=== PATIENT | female | born 1965 | race Caucasian/White ===

== ENCOUNTER 2016-07-21 13:07 | Emergency (ER) | payer OTHER ==
[2016-07-21 14:09] LABS: HEMOGLOBIN 13.5 gm/dl (12.3-15.3); RED BLOOD COUNT 4.3 M/UL (4.00-5.10); WHITE BLOOD COUNT 13.8 K/UL (4.5-11.0)
[2016-07-21 14:30] LABS: BUN/CREATININE RATIO 13 (0-10)
[2016-08-06] MEDS ORDERED: COLACE 100MG C100 MG PO (08:51)
[2016-08-06] MEDS ORDERED: DULOXETINE HCL30 MG PO (08:51)
[2016-08-06] MEDS ORDERED: DULERA 100 MCG8.8 GM INH (08:51)
[2016-08-06] MEDS ORDERED: BUPROPION HCL150 M1 PO (08:51)
[2016-08-06] MEDS ORDERED: IBUPROFEN800 MG PO (08:52)
[2016-08-06] MEDS ORDERED: NEURONTIN 400400 MG PO (08:52)
[2016-08-06] MEDS ORDERED: UNITHROID175 MCG PO (08:54)
[2016-08-06] MEDS ORDERED: LISINOPRIL20 MG PO (08:55)
[2016-08-06] MEDS ORDERED: SIMVASTATIN40 MG PO (08:55)
[2016-08-06] MEDS ORDERED: OMEPRAZOLE20 M1 PO (08:55)
[2016-08-06] MEDS ORDERED: HYDROCODON-ACE1 EAC2 PO (08:56)
[2016-08-06] MEDS ORDERED: BACTROBAN NASAL1 G1 (12:26)
[2016-08-06] MEDS ORDERED: NORCO 7.5-3251 EACH PO (12:27)
== END 2016-07-21 20:25 ==
LOC: ER1 13:07
PROVIDERS: Emergency Medicine
DX: K86.89 Other specified diseases of pancreas (principal); J44.9 Chronic obstructive pulmonary disease, unspecified; K21.9 Gastro-esophageal reflux disease without esophagitis; I10 Essential (primary) hypertension; Z90.89 Acquired absence of other organs; Z90.710 Acquired absence of both cervix and uterus; F17.210 Nicotine dependence, cigarettes, uncomplicated
CPT/HCPCS: 36415; 71010; 80053; 82550; 82553; 83605; 83874; 83880; 84484; 85025; 85379; 87040; 93005; 96361; 96374; 96375; 96376; 99285; J0696; J2270; J2405; J7050; Q9963

== ENCOUNTER → 2016-08-06 | Day surgery (SDC) | payer OTHER ==
[~2016-08-06] VITALS: Ht 157.5 cm; Wt 59.4 kg
[~2016-08-06] MED LIST: BACTROBAN NASAL1 G1; BUPROPION HCL150 M1 PO; COLACE 100MG C100 MG PO; DULERA 100 MCG8.8 GM INH; DULOXETINE HCL30 MG PO; ENSURE ORIGINA237 ML PO; HYDROCHLOROTHIA25 MG PO; HYDROCODON-ACE1 EAC2 PO; IBUPROFEN800 MG PO; LACTULOSE10 GM/15 M PO; LEVAQUIN500 MG PO; LISINOPRIL20 MG PO; LORTAB 7.5-3251 EACH PO; LOVENOX SY60 MG/0.6 SQ; MORPHINE SULFAT30 M2 PO; MORPHINE SULFAT30 M6 PO; NEURONTIN 400400 MG PO; NORCO 7.5-3251 EACH PO; OMEPRAZOLE20 M1 PO; OMEPRAZOLE20 MG PO; PHENERGAN 25 MG25 M1 PO; SENNA LAX8.6 MG PO; SIMVASTATIN40 MG PO; UNITHROID175 MCG PO
== END | disposition home or self-care (01) ==
LOC: OR 07:50
PROVIDERS: Surgery
PROC: 05HM33Z Insertion of Infusion Device into Right Internal Jugular Vein, Percutaneous Approach (ICD-10-PCS; 2016-08-06)
PROC: B513ZZA Fluoroscopy of Right Jugular Veins, Guidance (ICD-10-PCS; 2016-08-06)
PROC: 0JH60XZ Insertion of Tunneled Vascular Access Device into Chest Subcutaneous Tissue and Fascia, Open Approach (ICD-10-PCS; principal; 2016-08-06 11:05)
DX: C25.9 Malignant neoplasm of pancreas, unspecified (principal); M19.90 Unspecified osteoarthritis, unspecified site; J45.909 Unspecified asthma, uncomplicated; I10 Essential (primary) hypertension; C22.9 Malignant neoplasm of liver, not specified as primary or secondary; M81.0 Age-related osteoporosis without current pathological fracture; M06.9 Rheumatoid arthritis, unspecified; G89.29 Other chronic pain; J44.9 Chronic obstructive pulmonary disease, unspecified; E03.9 Hypothyroidism, unspecified; F17.210 Nicotine dependence, cigarettes, uncomplicated; Z88.8 Allergy status to other drugs, medicaments and biological substances; Z79.891 Long term (current) use of opiate analgesic; Z79.899 Other long term (current) drug therapy; Z90.710 Acquired absence of both cervix and uterus; Z98.51 Tubal ligation status; Z96.611 Presence of right artificial shoulder joint; Z96.652 Presence of left artificial knee joint; Z87.01 Personal history of pneumonia (recurrent)
CPT/HCPCS: 71010; 77001; C1769; C1788; J0295; J0690; J1644; J2250; J3010; J3370; J7030; J7050; J7070; J7120

== ENCOUNTER → 2016-08-21 | Outpatient (CLI) | payer OTHER | LOC: RAD 10:13 | DX: R06.02 Shortness of breath (principal); R91.8 Other nonspecific abnormal finding of lung field | CPT/HCPCS: 71020 ==

== ENCOUNTER 2016-08-27 14:09 | Observation (INO) | payer OTHER ==
[~2016-08-27] VITALS: Ht 157.5 cm; Wt 56.8 kg
[~2016-08-27 14:09] MED LIST changes: -ENSURE ORIGINA237 ML PO; -HYDROCHLOROTHIA25 MG PO; -LACTULOSE10 GM/15 M PO; -LEVAQUIN500 MG PO; -LORTAB 7.5-3251 EACH PO; -LOVENOX SY60 MG/0.6 SQ; -MORPHINE SULFAT30 M2 PO; -MORPHINE SULFAT30 M6 PO; -OMEPRAZOLE20 MG PO; -PHENERGAN 25 MG25 M1 PO; -SENNA LAX8.6 MG PO
[2016-08-27 15:47] LABS: HEMOGLOBIN 13.9 gm/dl (12.3-15.3); RED BLOOD COUNT 4.43 M/UL (4.00-5.10); WHITE BLOOD COUNT 16.5 K/UL (4.5-11.0)
[2016-08-27 16:34] LABS: BUN/CREATININE RATIO 22 (0-10)
[2016-08-27] MEDS ORDERED: HYDROCHLOROTHIA25 MG PO (21:26)
[2016-08-27] MEDS ORDERED: LORTAB 7.5-3251 EACH PO (21:26)
[2016-08-27] MEDS ORDERED: NEURONTIN 400400 MG PO ×2 (21:27→22:10)
[2016-08-27] MEDS ORDERED: MORPHINE SULFAT30 M6 PO (21:27)
[2016-08-27] MEDS ORDERED: LACTULOSE10 GM/15 M PO (21:28)
[2016-08-27] MEDS ORDERED: OMEPRAZOLE20 MG PO (21:28)
[2016-08-27] MEDS ORDERED: SENNA LAX8.6 MG PO (21:29)
[2016-08-27] MEDS ORDERED: PHENERGAN 25 MG25 M1 PO (21:32)
[2016-08-28 06:16] LABS: RED BLOOD COUNT 4.24 M/UL (4.00-5.10); WHITE BLOOD COUNT 13.8 K/UL (4.5-11.0)
[2016-08-28 06:26] LABS: BUN/CREATININE RATIO 20 (0-10)
[2016-08-29 07:42] LABS: HEMOGLOBIN 13.6 gm/dl (12.3-15.3); RED BLOOD COUNT 4.37 M/UL (4.00-5.10); WHITE BLOOD COUNT 12.9 K/UL (4.5-11.0)
[2016-08-29] MEDS ORDERED: LOVENOX SY60 MG/0.6 SQ (11:24)
[2016-08-29] MEDS ORDERED: MORPHINE SULFAT30 M2 PO (11:26)
[2016-08-29] MEDS ORDERED: LEVAQUIN500 MG PO (11:28)
[2016-08-29] MEDS ORDERED: LORTAB 7.5-3251 EACH PO (11:30)
[2016-08-29] MEDS ORDERED: ENSURE ORIGINA237 ML PO (11:37)
== END 2016-08-29 13:29 | disposition home or self-care (01) ==
LOC: ER1 14:09 → M/S 19:00 → ZEROF 19:00 → M/S 20:21
PROVIDERS: Physician Assistant; ADMIT Emergency Medicine
DX: J96.01 Acute respiratory failure with hypoxia (principal); I26.99 Other pulmonary embolism without acute cor pulmonale; C25.0 Malignant neoplasm of head of pancreas; C78.7 Secondary malignant neoplasm of liver and intrahepatic bile duct; C77.9 Secondary and unspecified malignant neoplasm of lymph node, unspecified; E44.0 Moderate protein-calorie malnutrition; J42 Unspecified chronic bronchitis; R03.0 Elevated blood-pressure reading, without diagnosis of hypertension; R53.83 Other fatigue; F17.210 Nicotine dependence, cigarettes, uncomplicated; Z79.891 Long term (current) use of opiate analgesic; Z79.899 Other long term (current) drug therapy; Z96.652 Presence of left artificial knee joint; Z90.710 Acquired absence of both cervix and uterus; Z87.11 Personal history of peptic ulcer disease
CPT/HCPCS: 36415; 71010; 80053; 82550; 82553; 83605; 83690; 83874; 84439; 84443; 84484; 85025; 85027; 87040; 93005; 93970; 94664; 96372; 96374; 96375; 96376; 99285; G0378; J1650; J1956; J2270; J2405; J2930; J7050; Q9963